=== PATIENT | female | born 1985 | race Caucasian/White ===

== ENCOUNTER 2017-08-05 07:33 | Inpatient (IN) | payer BC ==
[2017-08-05 08:56] LABS: ABS Basophils 0 10^3/ul (0-0.2); ABS Eosinophils 0.1 10^3/ul (0-0.6); ABS Lymphocytes 0.9 10^3/ul (1.0-4.8); ABS Monocytes 0.5 10^3/ul (0-0.8); ABS Nucleated RBC 0 10^3/ul; Eosinophil % 1.7 % (0-6); Hematocrit 34 % (35-47); Hemoglobin 11.7 g/dl (12.0-16.0); Lymphocyte % 14.4 % (25-47); Mean Corpuscular HGB Conc 34 g/dl (31-36); Mean Corpuscular Hemoglobin 28 pg (27-31); Mean Corpuscular Volume 81 fL (80-97); Mean Platelet Volume 10 um3 (7.4-10.4); Nucleated Red Blood Cells % 0.1; Platelet Count 254 10^3/ul (150-450); Red Blood Count 4.23 10^6/ul (4.0-5.4); Red Cell Distribution Width 14 % (10.5-15); White Blood Count 6.6 10^3/ul (3.5-10.8)
[2017-08-05] MEDS ORDERED: Oxytocin in LR* 20 UNITS/1,000 ML BAG IVPB SCH ×2 (09:00→16:00)
[2017-08-05] MEDS ORDERED: ceFOXitin(*) 1 GM VIAL ONE (14:28)
[2017-08-05] MEDS ORDERED: OXYTOCIN* 10 UNITS/ML 1 ML VIAL ONE (14:53)
[2017-08-05] MEDS ORDERED: Mivacurium Chloride* 20 MG/10 ML VIAL IV ONE (14:53)
[2017-08-05] MEDS ORDERED: Propofol* 10 MG/ML 20 ML BTL IV PUSH ONE (14:53)
[2017-08-05] MEDS ORDERED: Succinylcholine* 20 MG/ML 10 ML VIAL ONE (14:53)
[2017-08-05] MEDS ORDERED: Glycopyrrolate IV* 0.2 MG/ML 1 ML VIAL ONE (14:59)
[2017-08-05] MEDS ORDERED: Neostigmine Methylsulfate* 2 MG/2 ML SYRINGE ONE (14:59)
[2017-08-05] MEDS ORDERED: fentaNYL* 50 MCG/ML 5 ML VIAL (250 MCG VIAL) IV ONE (15:00)
[2017-08-05] MEDS ORDERED: fentaNYL* 50 MCG/ML 2 ML VIAL (100 MCG VIAL) IV ONE (15:00)
[2017-08-05] MEDS ORDERED: Naloxone* 0.4 MG/ML 1 ML VIAL IV PRN (15:10)
[2017-08-05] MEDS ORDERED: Morphine INJ* 2 MG/ML 1 ML CARPUJECT IV PRN (15:10)
[2017-08-05] MEDS ORDERED: DiMENhydriNATE IV* 50 MG/ML VIAL IV PUSH PRN (15:10)
[2017-08-05] MEDS ORDERED: Ondansetron INJ* 2 MG/ML VIAL IV PRN (15:10)
[2017-08-05] MEDS ORDERED: oxyCODONE/Acetamin 5/325 MG* TAB PO PRN (15:10)
[2017-08-05] MEDS ORDERED: PROCHLORPERAZINE INJ 5 MG/ML 2 ML VIAL IV PRN (15:10)
[2017-08-05] MEDS ORDERED: Ketorolac INJ* 30 MG/ML 1 ML VIAL IV PRN (15:10)
[2017-08-05] MEDS ORDERED: fentaNYL* 50 MCG/ML 2 ML VIAL (100 MCG VIAL) ONE (15:13)
[2017-08-05] MEDS ORDERED: Ketorolac INJ* 30 MG/ML 1 ML VIAL ONE (15:13)
[2017-08-05] MEDS ORDERED: Dibucaine 1% 28.35 GM TUBE PR PRN (15:17)
[2017-08-05] MEDS ORDERED: Acetaminophen TAB* 325 MG PO PRN (15:17)
[2017-08-05] MEDS ORDERED: Witch Hazel PAD* JAR TOPICAL PRN (15:17)
[2017-08-05] MEDS ORDERED: Glycerin ADULT SUPP PR PRN (15:17)
[2017-08-05] MEDS ORDERED: Zolpidem TAB* 5 MG PO PRN (15:17)
[2017-08-05] MEDS: fentaNYL* 50 MCG/ML 2 ML VIAL (100 MCG VIAL) IV PRN ×2 (15:23→15:43)
[2017-08-05] MEDS ORDERED: Midazolam* 1 MG/ML 2 ML VIAL (2 MG) IV ONE (16:00)
[2017-08-05] MEDS: Simethicone TAB* 80 MG TAB.CHEW PO SCH ×2 (20:10)
[2017-08-05] MEDS: Docusate CAP* 100 MG PO SCH (20:10)
[2017-08-05] MEDS: oxyCODONE/Acetamin 5/325 MG* TAB PO PRN (20:10)
[2017-08-05] MEDS ORDERED: ceFOXitin 2 GM IVPREMIX* 2 GM/50 ML BAG IVPB ONE (21:00)
[2017-08-05] MEDS: Ibuprofen TAB* 600 MG PO PRN (23:16)
[2017-08-06] MEDS: oxyCODONE/Acetamin 5/325 MG* TAB PO PRN ×6 (00:11→22:20)
[2017-08-06] MEDS: Ibuprofen TAB* 600 MG PO PRN ×3 (06:37→17:57)
[2017-08-06 08:11] LABS: ABS Basophils 0.1 10^3/ul (0-0.2); ABS Eosinophils 0.1 10^3/ul (0-0.6); ABS Lymphocytes 0.7 10^3/ul (1.0-4.8); ABS Neutrophils 9.7 10^3/ul (1.5-7.7); ABS Nucleated RBC 0 10^3/ul; Eosinophil % 0.7 % (0-6); Hematocrit 31 % (35-47); Hemoglobin 10.5 g/dl (12.0-16.0); Lymphocyte % 5.8 % (25-47); Mean Corpuscular HGB Conc 34 g/dl (31-36); Mean Corpuscular Hemoglobin 27 pg (27-31); Mean Corpuscular Volume 81 fL (80-97); Mean Platelet Volume 9 um3 (7.4-10.4); Nucleated Red Blood Cells % 0; Platelet Count 224 10^3/ul (150-450); Red Blood Count 3.86 10^6/ul (4.0-5.4); Red Cell Distribution Width 14 % (10.5-15); White Blood Count 11.5 10^3/ul (3.5-10.8)
[2017-08-06] MEDS ORDERED: Ferrous Gluconate TAB* 324 MG TAB PO SCH (09:00)
[2017-08-06] MEDS: Docusate CAP* 100 MG PO SCH ×3 (10:02→22:20)
[2017-08-06] MEDS: Simethicone TAB* 80 MG TAB.CHEW PO SCH ×4 (10:02→22:20)
[2017-08-06] MEDS: FLUoxetine CAP* 10 MG PO SCH (13:07)
[2017-08-06] MEDS: Hydrocortisone 1% CREAM* 30 GM TUBE TOPICAL SCH (18:48)
[2017-08-07] MEDS: Ibuprofen TAB* 600 MG PO PRN ×4 (00:36→21:13)
[2017-08-07] MEDS: oxyCODONE/Acetamin 5/325 MG* TAB PO PRN ×4 (02:58→16:56)
[2017-08-07] MEDS: Simethicone TAB* 80 MG TAB.CHEW PO SCH ×3 (08:48→21:13)
[2017-08-07] MEDS: Docusate CAP* 100 MG PO SCH ×3 (08:49→21:14)
[2017-08-07] MEDS ORDERED: PROZAC 10 MG PO SCH (09:00)
[2017-08-07] MEDS: FLUoxetine CAP* 10 MG PO SCH (13:10)
[2017-08-08] MEDS: oxyCODONE/Acetamin 5/325 MG* TAB PO PRN ×3 (00:22→12:18)
[2017-08-08] MEDS: Ibuprofen TAB* 600 MG PO PRN ×2 (03:54→10:18)
[2017-08-08] MEDS: Simethicone TAB* 80 MG TAB.CHEW PO SCH ×3 (08:11→12:18)
[2017-08-08] MEDS: Hydrocortisone 1% CREAM* 30 GM TUBE TOPICAL SCH ×2 (08:11→09:55)
[2017-08-08] MEDS: Docusate CAP* 100 MG PO SCH (08:18)
[2017-08-08 08:22] VITALS: BP 125/69
[2017-08-08] MEDS: FLUoxetine CAP* 10 MG PO SCH (10:57)
--- NOTE | 2017-08-22 03:54 | OP ---
DATE OF OPERATION: 08/05/17 - ROOM #[id number] DATE OF : 81 SURGEON: Ashutosh Khan MD SHEARING SHED WORKER: Ashley Gallego MD ANESTHESIA: General anesthetic with endotracheal intubation. PRE-OPERATIVE DIAGNOSES: Intrauterine at 39 weeks with - induced hypertension, prior section, in labor. POST-OPERATIVE DIAGNOSES: Intrauterine at 39 weeks with - induced hypertension, prior section in labor along with cord prolapse in labor. OPERATIVE PROCEDURE: Emergency repeat low transverse section. ESTIMATED BLOOD LOSS: 800 cc. IV FLUIDS: She received 1600 cc of IV crystalloid fluid. URINE OUTPUT: Clear. COMPLICATIONS: There were no complications during the procedure. SPECIMEN SENT TO PATHOLOGY: Cord gas and cord blood. FINDINGS: Delivery of a viable male infant with Apgars of 6 and 9, weighing 8 pounds and 12 ounces. The placenta was grossly intact with a 3-vessel cord noted, it was sent to Pathology. The uterus, adnexa, bowel, bladder were all within normal limits. DESCRIPTION OF PROCEDURE: The patient was taken to the operating room after a cord prolapse was first noted in the labor and delivery while the patient was in labor. She was placed on the operating bed in the supine position with a leftward tilt where general anesthetic with endotracheal intubation was obtained without difficulty. She was prepped and draped in a normal sterile fashion. A Pfannenstiel skin incision was made with a knife and carried through the underlying layer of fascia. The fascia was nicked in the midline and extended laterally with curved Joy scissors. The fascia was grasped superiorly and inferiorly with Watson clamps and dissected off sharply from the rectus muscle. The peritoneum was identified after the rectus muscle was in the midline bluntly. The peritoneum was then bluntly and extended inferiorly with sharp dissection. A bladder blade was inserted into the patient's abdomen and a bladder flap was created using Metzenbaum scissors over which a bladder blade was then reinserted. A low transverse skin incision was made with a knife and extended laterally with bandage scissors. Amniotic sac was noted to be ruptured. The 's head was then grasped and delivered atraumatically. The cord was clamped and cut and the infant was handed off to awaiting laboratory supervisor. Cord bloods were obtained as well as cord gas. The placenta was then removed manually. The uterus was then exteriorized, cleared of all clot and debris using moist laparotomy sponges. The uterine incision was then closed using 0 Polysorb suture in a running locked fashion with a second imbricating layer of 0 Polysorb suture with good hemostasis noted. At this point, the uterus was then returned to the patient's abdomen. The gutters were then cleared of all clot and debris using moist laparotomy sponges. After sponges were removed, we proceeded to irrigate the patient's abdomen with normal saline. Irrigation fluid was suctioned. Hemostasis at the uterine incision was again noted. All the instruments were removed from the patient's abdomen and peritoneum was then closed using 3-0 Polysorb suture in a running fashion. The fascia was closed using 0 Polysorb suture in a running fashion and interrupted 3-0 Polysorb subcutaneous stitches were used to approximate Latoya's fascia after which the skin was closed with jayson. The patient tolerated the procedure well. Sponge, lap and needle counts were correct x2. She was then transferred to recovery room area in stable condition. [id number]/[facility] #: [id number] SAMIA
== END 2017-08-08 13:17 | disposition home or self-care (01) | DRG 540 ==
LOC: MCHOBOUT 07:33 → MCHOB 08:20
PROVIDERS: ADMIT Obstetrics & Gynecology; ATTEND Obstetrics & Gynecology
PROC: 10D00Z1 Extraction of Products of Conception, Low, Open Approach (ICD-10-PCS; 2017-08-05)
PROC: 4A1HX4Z Monitoring of Products of Conception, Cardiac Electrical Activity, External Approach (ICD-10-PCS; 2017-08-05)
PROC: 10907ZC Drainage of Amniotic Fluid, Therapeutic from Products of Conception, Via Natural or Artificial Opening (ICD-10-PCS; principal; 2017-08-05 14:10)
DX: O13.4 Gestational [pregnancy-induced] hypertension without significant proteinuria, complicating childbirth (principal); O24.429 Gestational diabetes mellitus in childbirth, unspecified control; F32.9 Major depressive disorder, single episode, unspecified; O69.0XX0 Labor and delivery complicated by prolapse of cord, not applicable or unspecified; O34.211 Maternal care for low transverse scar from previous cesarean delivery; O99.344 Other mental disorders complicating childbirth; Z3A.39 39 weeks gestation of pregnancy; Z37.0 Single live birth
CPT/HCPCS: 36415; 85025; 86850; 86900; 86901; 88307; A9270-GY; J0330; J0694; J1885; J2250; J2590; J2704; J3010

== ENCOUNTER 2017-08-09 01:17 | Emergency (ER) | payer BC ==
[2017-08-09 06:00] LABS: ABS Basophils 0 10^3/ul (0-0.2); ABS Eosinophils 0.1 10^3/ul (0-0.6); ABS Lymphocytes 0.5 10^3/ul (1.0-4.8); ABS Monocytes 0.4 10^3/ul (0-0.8); ABS Neutrophils 6.9 10^3/ul (1.5-7.7); ABS Nucleated RBC 0 10^3/ul; Eosinophil % 1.1 % (0-6); Hematocrit 30 % (35-47); Hemoglobin 9.8 g/dl (12.0-16.0); Lymphocyte % 6.9 % (25-47); Mean Corpuscular HGB Conc 33 g/dl (31-36); Mean Corpuscular Hemoglobin 27 pg (27-31); Mean Corpuscular Volume 81 fL (80-97); Mean Platelet Volume 9 um3 (7.4-10.4); Nucleated Red Blood Cells % 0.1; Platelet Count 273 10^3/ul (150-450); Red Blood Count 3.64 10^6/ul (4.0-5.4); Red Cell Distribution Width 15 % (10.5-15); White Blood Count 7.9 10^3/ul (3.5-10.8)
[2017-08-09 06:15] LABS: EGFR Non-African American 126.5 (>60)
[2017-08-09 06:23] LABS: INR 0.91 (0.77-1.02)
[2017-08-09] MEDS: NS 0.9% 1000 ML*IV.FLUID IV ONE ×2 (06:28→07:59)
[2017-08-09 08:00] LABS: Urine Appearance Cloudy; Urine Blood 3+ (Negative); Urine Color Yellow; Urine Ketones Negative (Negative); Urine Protein Negative (Negative); Urine Specific Gravity 1.008 (1.010-1.030); Urine Urobilinogen Negative (Negative)
[2017-08-09 09:37] LABS: Urine Appearance Clear; Urine Blood 1+ (Negative); Urine Color Yellow; Urine Ketones Negative (Negative); Urine Protein Negative (Negative); Urine Specific Gravity 1.011 (1.010-1.030); Urine Urobilinogen Negative (Negative)
[2017-08-09] MEDS ORDERED: Amoxicillin/Clavulanate TAB* 875 MG PO ONE (09:45)
[2017-08-09 10:07] VITALS: BP 136/80
--- NOTE | 2017-08-09 11:09 | RAD ---
INDICATION: Fever 3 days status post COMPARISON: None TECHNIQUE: PA and lateral views of the chest were obtained. FINDINGS: The heart and mediastinum are normal in size and contour. The lungs are grossly clear. There is no evidence of large pleural effusion. Visualized bones are normal for the patient's age. There is no radiographic evidence of free air beneath the diaphragm IMPRESSION: No radiographic evidence of acute cardiopulmonary disease.
--- NOTE | 2017-08-13 21:11 | ED ---
Erick De Los Santos Tecjoon, scribed for Eitan Pate MD on 08/09/17 at 0528 . HPI Febrile Illness - HPI Summary HPI Summary: This patient is a 32 year old female presenting to [facility] accompanied by family with a chief complaint of fever since yesterday. Patient recently gave to her second child 4 days ago. Child was born through emergency due to a prolapsed umbilical cord. Patients child was full term, at 39 weeks. Patient was discharged yesterday and woke up with a high fever. The pain is rated 3/10 in severity. Symptoms aggravated by nothing. Symptoms alleviated by nothing The patient treated the pain with Percocet and ibuprofen on and off while in the hospital. Patient additionally reports a mild cough. Patient denies nausea, vomiting, dysuria, SOB. - History of Current Complaint Chief Complaint: EDFever Hx Obtained From: Patient Hx Last Menstrual Period: 08/30/13 Onset/Duration: Started Days Ago, Still Present Timing: Constant Temperature: 40 C - when she "woke up" Initial Severity: Moderate Current Severity: Mild Pain Intensity: 3 Pain Scale Used: 0-10 Numeric Aggravating Factors: Nothing Alleviating Factors: Nothing Associated Signs and Symptoms: Negative - nausea, vomiting, dysuria, SOB, Other : - mild cough - Allergy/Home Medications Allergies/Adverse Reactions: Allergies Allergy/AdvReac Type Severity Reaction Status Date / Time No Known Allergies Allergy Verified 08/09/17 03:32 PMH/Surg Hx/FS Hx/Imm Hx Previously Healthy: Yes Endocrine/Hematology History: Denies: Hx Anticoagulant Therapy, Hx Blood Disorders, Hx Diabetes, Hx Thyroid Disease Cardiovascular History: Denies: Hx Hypertension Respiratory History: Denies: Hx Asthma, Hx Chronic Obstructive Pulmonary Disease (COPD) GI History: Denies: Hx Ulcer Musculoskeletal History: Denies: Hx Scoliosis Sensory History: Reports: Hx Contacts or Glasses - GLASSES Denies: Hx Hearing Aid Opthamlomology History: Reports: Hx Contacts or Glasses - GLASSES Neurological History: Reports: Hx Headaches, Hx Migraine - 1.5 YEARS AGO Denies: Other Neuro Impairments/Disorders Psychiatric History: Reports: Hx Anxiety, Hx Depression - Surgical History Surgery Procedure, Year, and Place: left arm surgery x2 1998/1999. cyst removed from neck x2. 2006 Hx Anesthesia Reactions: No - Immunization History Date of Influenza Vaccine: 05/2017 Infectious Disease History: No Infectious Disease History: Denies: Hx Clostridium Difficile, Hx Hepatitis, Hx Human Immunodeficiency Virus (HIV), Hx of Known/Suspected MRSA, Hx Shingles, Hx Tuberculosis, History Other Infectious Disease, Traveled Outside the [place] in Last 30 Days - Family History Known Family History: Negative: Hypertension - Social History Lives: With Family Alcohol Use: Occasionally Hx Substance Use: No Substance Use Type: Reports: None Hx Tobacco Use: No Smoking Status (MU): Never Smoked Tobacco Have You Smoked in the Last Year: No Review of Systems Positive: Fever - yesterday, 104 Positive: Cough. Negative: Shortness Of Breath Negative: Vomiting, Nausea Negative: dysuria All Other Systems Reviewed And Are Negative: Yes Physical Exam - Summary Physical Exam Summary: Appearance: Well-appearing, Well-nourished Skin: Warm Eyes: Normal ENT: Normal Neck: Supple, nontender Respiratory: Clear to auscultation Cardiovascular: Normal S1, S2. No murmurs. Normal distal pulses in tibial and radial bilaterally. Abdomen: Soft, nontender Musculoskeletal: Normal, Strength/ROM Intact Neurological: Normal, A&Ox3 Psychiatric: Normal Triage Information Reviewed: Yes Vital Signs On Initial Exam: Initial Vitals Temp Pulse Resp BP Pulse Ox 99.4 F 134 18 135/77 97 08/09/17 01:23 08/09/17 01:23 08/09/17 01:23 08/09/17 01:23 08/09/17 01:23 Vital Signs Reviewed: Yes Diagnostics - Vital Signs Vital Signs Temp Pulse Resp BP Pulse Ox 08/09/17 05:00 101 125/72 97 08/09/17 04:32 103 137/78 98 08/09/17 04:00 107 131/74 98 08/09/17 03:27 108 98 08/09/17 03:26 142/86 08/09/17 01:23 99.4 F 134 18 135/77 97 - Laboratory Lab Results: Lab Results 08/09/17 08/09/17 08/09/17 Range/Units 05:47 05:47 05:47 WBC 7.9 (3.5-10.8) 10^3/ul RBC 3.64 L (4.0-5.4) 10^6/ul Hgb 9.8 L (12.0-16.0) g/dl Hct 30 L (35-47) % MCV 81 (80-97) fL MCH 27 (27-31) pg MCHC 33 (31-36) g/dl RDW 15 (10.5-15) % Plt Count 273 (150-450) 10^3/ul MPV 9 (7.4-10.4) um3 Neut % (Auto) 86.9 H (38-83) % Lymph % (Auto) 6.9 L (25-47) % Stearns % (Auto) 4.5 (1-9) % Eos % (Auto) 1.1 (0-6) % Baso % (Auto) 0.6 (0-2) % Absolute Neuts (auto) 6.9 (1.5-7.7) 10^3/ul Absolute Lymphs (auto) 0.5 L (1.0-4.8) 10^3/ul Absolute Monos (auto) 0.4 (0-0.8) 10^3/ul Absolute Eos (auto) 0.1 (0-0.6) 10^3/ul Absolute Basos (auto) 0 (0-0.2) 10^3/ul Absolute Nucleated RBC 0 10^3/ul Nucleated RBC % 0.1 INR (Anticoag Therapy) 0.91 (0.77-1.02) APTT 30.1 (26.0-36.3) seconds Sodium 136 (133-145) mmol/L Potassium 3.8 (3.5-5.0) mmol/L Chloride 106 (101-111) mmol/L Carbon Dioxide 22 (22-32) mmol/L Anion Gap 8 (2-11) mmol/L BUN 10 (6-24) mg/dL Creatinine 0.55 (0.51-0.95) mg/dL Est GFR ( Amer) 162.7 (>60) Est GFR (Non-Af Amer) 126.5 (>60) BUN/Creatinine Ratio 18.2 (8-20) Glucose 91 (70-100) mg/dL Lactic Acid (0.5-2.0) mmol/L Calcium 8.7 (8.6-10.3) mg/dL Total Bilirubin 0.30 (0.2-1.0) mg/dL AST 41 H (13-39) U/L ALT 47 (7-52) U/L Alkaline Phosphatase 93 (34-104) U/L Troponin I 0.01 (<0.04) ng/mL Total Protein 6.2 L (6.4-8.9) g/dL Albumin 3.1 L (3.2-5.2) g/dL Globulin 3.1 (2-4) g/dL Albumin/Globulin Ratio 1.0 (1-3) Urine Color Urine Appearance Urine pH (5-9) Ur Specific [place] (1.010-1.030) Urine Protein (Negative) Urine Ketones (Negative) Urine Blood (Negative) Urine Nitrate (Negative) Urine Bilirubin (Negative) Urine Urobilinogen (Negative) Ur Leukocyte Esterase (Negative) Urine WBC (Auto) (Absent) Urine RBC (Auto) (Absent) Ur Squamous Epith Cells (Absent) Urine Bacteria (Absent) Urine Glucose (Negative) Influenza A (Rapid) (Negative) Influenza B (Rapid) (Negative) 08/09/17 08/09/17 08/09/17 Range/Units 05:47 06:51 07:30 WBC (3.5-10.8) 10^3/ul RBC (4.0-5.4) 10^6/ul Hgb (12.0-16.0) g/dl Hct (35-47) % MCV (80-97) fL MCH (27-31) pg MCHC (31-36) g/dl RDW (10.5-15) % Plt Count (150-450) 10^3/ul MPV (7.4-10.4) um3 Neut % (Auto) (38-83) % Lymph % (Auto) (25-47) % Stearns % (Auto) (1-9) % Eos % (Auto) (0-6) % Baso % (Auto) (0-2) % Absolute Neuts (auto) (1.5-7.7) 10^3/ul Absolute Lymphs (auto) (1.0-4.8) 10^3/ul Absolute Monos (auto) (0-0.8) 10^3/ul Absolute Eos (auto) (0-0.6) 10^3/ul Absolute Basos (auto) (0-0.2) 10^3/ul Absolute Nucleated RBC 10^3/ul Nucleated RBC % INR (Anticoag Therapy) (0.77-1.02) APTT (26.0-36.3) seconds Sodium (133-145) mmol/L Potassium (3.5-5.0) mmol/L Chloride (101-111) mmol/L Carbon Dioxide (22-32) mmol/L Anion Gap (2-11) mmol/L BUN (6-24) mg/dL Creatinine (0.51-0.95) mg/dL Est GFR ( Amer) (>60) Est GFR (Non-Af Amer) (>60) BUN/Creatinine Ratio (8-20) Glucose (70-100) mg/dL Lactic Acid 0.7 (0.5-2.0) mmol/L Calcium (8.6-10.3) mg/dL Total Bilirubin (0.2-1.0) mg/dL AST (13-39) U/L ALT (7-52) U/L Alkaline Phosphatase (34-104) U/L Troponin I (<0.04) ng/mL Total Protein (6.4-8.9) g/dL Albumin (3.2-5.2) g/dL Globulin (2-4) g/dL Albumin/Globulin Ratio (1-3) Urine Color Yellow Urine Appearance Cloudy Urine pH 6.0 (5-9) Ur Specific [place] 1.008 L (1.010-1.030) Urine Protein Negative (Negative) Urine Ketones Negative (Negative) Urine Blood 3+ H (Negative) Urine Nitrate Negative (Negative) Urine Bilirubin Negative (Negative) Urine Urobilinogen Negative (Negative) Ur Leukocyte Esterase 3+ H (Negative) Urine WBC (Auto) 3+(>20/hpf) H (Absent) Urine RBC (Auto) 3+(>10/hpf) H (Absent) Ur Squamous Epith Cells Present H (Absent) Urine Bacteria 1+ H (Absent) Urine Glucose Negative (Negative) Influenza A (Rapid) Negative (Negative) Influenza B (Rapid) Negative (Negative) 08/09/17 Range/Units 09:03 WBC (3.5-10.8) 10^3/ul RBC (4.0-5.4) 10^6/ul Hgb (12.0-16.0) g/dl Hct (35-47) % MCV (80-97) fL MCH (27-31) pg MCHC (31-36) g/dl RDW (10.5-15) % Plt Count (150-450) 10^3/ul MPV (7.4-10.4) um3 Neut % (Auto) (38-83) % Lymph % (Auto) (25-47) % Stearns % (Auto) (1-9) % Eos % (Auto) (0-6) % Baso % (Auto) (0-2) % Absolute Neuts (auto) (1.5-7.7) 10^3/ul Absolute Lymphs (auto) (1.0-4.8) 10^3/ul Absolute Monos (auto) (0-0.8) 10^3/ul Absolute Eos (auto) (0-0.6) 10^3/ul Absolute Basos (auto) (0-0.2) 10^3/ul Absolute Nucleated RBC 10^3/ul Nucleated RBC % INR (Anticoag Therapy) (0.77-1.02) APTT (26.0-36.3) seconds Sodium (133-145) mmol/L Potassium (3.5-5.0) mmol/L Chloride (101-111) mmol/L Carbon Dioxide (22-32) mmol/L Anion Gap (2-11) mmol/L BUN (6-24) mg/dL Creatinine (0.51-0.95) mg/dL Est GFR ( Amer) (>60) Est GFR (Non-Af Amer) (>60) BUN/Creatinine Ratio (8-20) Glucose (70-100) mg/dL Lactic Acid (0.5-2.0) mmol/L Calcium (8.6-10.3) mg/dL Total Bilirubin (0.2-1.0) mg/dL AST (13-39) U/L ALT (7-52) U/L Alkaline Phosphatase (34-104) U/L Troponin I (<0.04) ng/mL Total Protein (6.4-8.9) g/dL Albumin (3.2-5.2) g/dL Globulin (2-4) g/dL Albumin/Globulin Ratio (1-3) Urine Color Yellow Urine Appearance Clear Urine pH 6.0 (5-9) Ur Specific [place] 1.011 (1.010-1.030) Urine Protein Negative (Negative) Urine Ketones Negative (Negative) Urine Blood 1+ H (Negative) Urine Nitrate Negative (Negative) Urine Bilirubin Negative (Negative) Urine Urobilinogen Negative (Negative) Ur Leukocyte Esterase Negative (Negative) Urine WBC (Auto) Trace(0-5/hpf) (Absent) Urine RBC (Auto) Trace(0-2/hpf) (Absent) Ur Squamous Epith Cells Present H (Absent) Urine Bacteria Absent (Absent) Urine Glucose Negative (Negative) Influenza A (Rapid) (Negative) Influenza B (Rapid) (Negative) Result Diagrams: 08/09/17 05:47 08/09/17 05:47 Lab Statement: Any lab studies that have been ordered have been reviewed, and results considered in the medical decision making process. Course/Dx - Course Assessment/Plan: I spoke with Dr. Herring who spoke with pt's surgeon, pt in no acute distress and well appearing. vitals stable, abx started here in ED and instructed to return for any repeat episodes of fever. pt agrees to and understands dc instructions.tolerating po. - Diagnoses Provider Diagnoses: fever - Provider Notifications Discussed Care Of Patient With: Gillian Herring Time Discussed With Above Provider: 09:00 Discharge - Discharge Plan Condition: Stable Disposition: HOME Prescriptions: Amoxicillin/Clavulanate TAB* [Augmentin TAB 875*] 875 mg PO BID #20 tab Patient Education Materials: Fever in Adults (ED) Referrals: Ashutosh Khan MD [Medical Doctor] - Gillian Herring MD [Medical Doctor] - Sachin Vu NP [Primary Care Provider] - Additional Instructions: PLEASE COMPLETE WHOLE COURSE OF MEDICATIONS PLEASE MAKE AN APPOINTMENT FIRST THING IN THE MORNING TO BE SEEN BY YOUR OB DOCTOR WITHIN 2-5 DAYS PLEASE RETURN IMMEDIATELY TO THE ER IF YOU HAVE ANY WORSENING OR CONCERNING SYMPTOMS PLEASE MAKE AN APPOINTMENT TO BE SEEN BY YOUR PRIMARY CARE DOCTOR WITHIN 1 WEEK The documentation as recorded by the Erick chan Tecjoon accurately reflects the service I personally performed and the decisions made by me, Eitan Pate MD.
== END 2017-08-09 10:07 | disposition home or self-care (01) ==
LOC: ED 01:17
DX: O86.4 Pyrexia of unknown origin following delivery (principal)
CPT/HCPCS: 36415; 71046; 80053; 81003; 81015; 83605; 84484; 85025; 85610; 85730; 87040; 87086; 87502; 96360; 99283; A9270-GY

== ENCOUNTER 2019-07-20 18:54 | Emergency (ER) | payer BC ==
--- NOTE | 2019-07-20 19:18 | ED ---
HPI Chest Pain - HPI Summary HPI Summary: This pt is a 34 y/o female presenting to [facility] via EMS c/o left sided chest pain since 1700 today. Pt reports she was doing house work today at home when she suddenly felt dizzy and sat down. She notes she then began to have chest pain. Pt states she ate some chocolate because she had not eaten since breakfast. She reports initially felt a little better but then her chest pain began worsening. At onset she rates her chest pain 9/10 in severity and describes it as a sharp pain. Additionally pt felt left arm and left leg numbness and tingling. Denies associated symptoms of fever, SOB, nausea, vomiting. EMS administered nitroglycerin x2 and 324 mg aspirin with moderate relief. Currently pt rates her chest pain 5/10 in severity. Pt reports she has had this pain in the past, last summer, but it lasted 1-2 weeks with gradual onset for which she went to the hospital and was diagnosed with GERD. PMHx: migraines, anxiety, depression, GERD. Pt is a former smoker, quit 15 years ago. She admits to occasional alcohol and marijuana use. FHx: uncle with fatal MD at age 41 and father with fatal MD at age 56. - History of Current Complaint Time Seen by Provider: 07/20/19 19:00 Hx Obtained From: Patient Hx Last Menstrual Period: 08/30/13 Onset/Duration: Started Hours Ago, Still Present Timing: Lasting Hours Initial Severity: Severe Current Severity: Moderate Pain Intensity: 5 Pain Scale Used: 0-10 Numeric Chest Pain Location: Left Anterior Chest Pain Radiates: No Character: Sharp/Stabbing - sharp Aggravating Factor(s): Nothing Alleviating Factor(s): Nothing Associated Signs and Symptoms: Positive: Chest Pain, Numbness, Tingling. Negative: Shortness of Breath, Fever, Chills, Nausea, Vomiting - Allergy/Home Medications Allergies/Adverse Reactions: Allergies Allergy/AdvReac Type Severity Reaction Status Date / Time No Known Allergies Allergy Verified 07/20/19 19:01 Home Medications: Home Medications Bupropion XL* [Wellbutrin XL *] 150 mg PO QPM 07/20/19 [History Confirmed ] Bupropion XL* [Wellbutrin XL *] 300 mg PO QAM 07/20/19 [History Confirmed ] Fluoxetine (Nf) Cap [Fluoxetine HCl] 40 mg PO DAILY 07/20/19 [History Confirmed 07/20/19] Propranolol HCl [Propranolol HCl ER] 80 mg PO DAILY 07/20/19 [History Confirmed 07/20/19] PMH/Surg Hx/FS Hx/Imm Hx Endocrine/Hematology History: Denies: Hx Anticoagulant Therapy, Hx Blood Disorders, Hx Diabetes, Hx Thyroid Disease Cardiovascular History: Denies: Hx Hypertension Respiratory History: Denies: Hx Asthma, Hx Chronic Obstructive Pulmonary Disease (COPD) GI History: Denies: Hx Ulcer Musculoskeletal History: Denies: Hx Scoliosis Sensory History: Reports: Hx Contacts or Glasses - GLASSES Denies: Hx Hearing Aid Opthamlomology History: Reports: Hx Contacts or Glasses - GLASSES Neurological History: Reports: Hx Headaches, Hx Migraine - 1.5 YEARS AGO Denies: Other Neuro Impairments/Disorders Psychiatric History: Reports: Hx Anxiety, Hx Depression - Surgical History Surgical History: Yes Surgery Procedure, Year, and Place: left arm surgery x2 1998/1999. cyst removed from neck x2. 2006. exploratory surgery to remove IUD Hx Anesthesia Reactions: No - Immunization History Date of Influenza Vaccine: 2019 Immunizations Up to Date: Yes Infectious Disease History: No Infectious Disease History: Denies: Hx Clostridium Difficile, Hx Hepatitis, Hx Human Immunodeficiency Virus (HIV), Hx of Known/Suspected MRSA, Hx Shingles, Hx Tuberculosis, History Other Infectious Disease, Traveled Outside the [place] in Last 30 Days - Family History Known Family History: Negative: Hypertension - Social History Alcohol Use: Occasionally Hx Substance Use: No Substance Use Type: Reports: Marijuana Substance Use Comment - Amount & Last Used: last smoked today Hx Tobacco Use: No Smoking Status (MU): Former Smoker Have You Smoked in the Last Year: No Review of Systems Negative: Fever Positive: Chest Pain Negative: Shortness Of Breath Negative: Vomiting, Nausea Positive: Paresthesia, Numbness All Other Systems Reviewed And Are Negative: Yes Physical Exam - Summary Physical Exam Summary: VITAL SIGNS: Reviewed. GENERAL: Patient is a well-developed and nourished female who is lying comfortable in the stretcher. Patient is not in any acute respiratory distress. HEAD AND FACE: No signs of trauma. No ecchymosis, hematomas or skull depressions. No sinus tenderness. EYES: PERRLA, EOMI x 2, No injected conjunctiva, no nystagmus. EARS: Hearing grossly intact. Ear canals and tympanic membranes are within normal limits. MOUTH: Oropharynx within normal limits. NECK: Supple, trachea is midline, no adenopathy, no JVD, no carotid bruit, no c- spine tenderness, neck with full ROM. CHEST: Symmetric, reproducible chest pain. LUNGS: Clear to auscultation bilaterally. No wheezing or crackles. CVS: Regular rate and rhythm, S1 and S2 present, no murmurs or gallops appreciated. ABDOMEN: Soft, non-tender. No signs of distention. No rebound, no guarding, and no masses palpated. Bowel sounds are normal. EXTREMITIES: FROM in all major joints, no edema, no cyanosis or clubbing. NEURO: Alert and oriented x 3. No acute neurological deficits. Speech is normal and follows commands. SKIN: Dry and warm Triage Information Reviewed: Yes Vital Signs On Initial Exam: Initial Vitals Temp Pulse Resp BP Pulse Ox 98 F 96 20 156/90 99 07/20/19 18:57 07/20/19 18:57 07/20/19 18:57 07/20/19 18:57 07/20/19 18:57 Vital Signs Reviewed: Yes Procedures - Sedation Patient Received Moderate/Deep Sedation with Procedure: No Diagnostics - Vital Signs Vital Signs Temp Pulse Resp BP Pulse Ox 07/20/19 19:03 89 19 97 07/20/19 18:57 98 F 91 20 156/90 99 - Laboratory Result Diagrams: 07/20/19 19:54 07/20/19 19:54 Lab Statement: Any lab studies that have been ordered have been reviewed, and results considered in the medical decision making process. - Radiology chest XR Radiology Interpretation Completed By: ED Physician Summary of Radiographic Findings: No acute process. - EKG 19:17 Cardiac Rate: NL - at 78 bpm EKG Rhythm: Sinus Rhythm Summary of EKG Findings: EKG at 1917 shows sinus rhythm at a rate of [address] elevations. EKG was reviewed and interpreted by ED physician. Re-Evaluation - Re-Evaluation First Eval Re-Evaluation Time: 20:58 Comment: Reviewed results with pt. She will be discharged home. Chest Pain Course/Dx - Course Assessment/Plan: This pt is a 34 y/o female presenting to [facility] via EMS c/o left sided chest pain since 1700 today. Pt reports she was doing house work today at home when she suddenly felt dizzy and sat down. She notes she then began to have chest pain. Pt states she ate some chocolate because she had not eaten since breakfast. She reports initially felt a little better but then her chest pain began worsening. At onset she rates her chest pain 9/10 in severity and describes it as a sharp pain. Additionally pt felt left arm and left leg numbness and tingling. Denies associated symptoms of fever, SOB, nausea, vomiting. EMS administered nitroglycerin x2 and 324 mg aspirin with moderate relief. Currently pt rates her chest pain 5/10 in severity. Pt reports she has had this pain in the past, last summer, but it lasted 1-2 weeks with gradual onset for which she went to the hospital and was diagnosed with GERD. PMHx: migraines, anxiety, depression, GERD. Pt is a former smoker, quit 15 years ago. She admits to occasional alcohol and marijuana use. FHx: uncle with fatal MD at age 41 and father with fatal MD at age 56. Blood work without any significant abnormality. Troponin is 0.00. EKG shows a normal sinus rhythm without any ST elevations. Chest x-ray shows no acute pathology. In the ED course the patient continues to be asymptomatic. Patient reports that all symptoms have resolved. Patient's HEART score is: 0 therefore, low suspicion for CAD. Patient is not hypoxic or tachycardic. Wells criteria 0, therefore no suspicion for PE. Patient has no abdominal bruit thus no suspicion for AAA. Patients pain does not radiate to the back and pain has resolved thus low suspicion for aortic dissection. I discussed all the findings and test results with the patient. Patient was instructed to return to the emergency room immediately if any of the symptoms return or worsen. Patient understands and agrees. Plan of care was discussed with the patient and patient understands and agrees. All questions were answered at patient satisfaction. There were no further complaints or concerns. Physical exam before discharge: CVS: S1 and S2 present. No murmurs appreciated. Abdominal exam before discharge: Soft, non- tender. No signs of distention. No rebound no guarding, and no masses palpated. Bowel sounds are normal. Patient is alert and oriented x 3. Patient is hemodynamically stable. - Chest Pain Differential Diagnosis/HQI/PQRI: Acute MD, ACS, Angina, CHF, Chest Wall, GI Disease, Lower Respiratory Infection, Pulmonary Edema - Diagnoses Provider Diagnoses: Atypical chest pain Discharge ED - Sign-Out/Discharge Documenting (check all that apply): Patient Departure - Discharge home - Discharge Plan Condition: Stable Disposition: HOME Patient Education Materials: Chest Pain (ED) Referrals: Sachin Vu DIRECTOR [employer] [Primary Care Provider] - Additional Instructions: FOLLOW UP WITH YOUR PRIMARY CARE PROVIDER IN 2-3 DAYS. RETURN TO THE ED FOR ANY NEW OR WORSENING SYMPTOMS. - Billing Disposition and Condition Condition: STABLE Disposition: Home - Attestation Statements Document Initiated by Scribe: Yes Documenting Scribe: Iona Flores Provider For Whom Scribe is Documenting (Include Credential): Jaiden Posada MD Scribe Attestation: Iona De Los Santos scribed for Jaiden Posada MD on 07/20/19 at 2154. Scribe Documentation Reviewed: Yes Provider Attestation: The documentation as recorded by the oIna chan accurately reflects the service I personally performed and the decisions made by Jaiden galvez MD Status of Scribe Document: Viewed
--- OUTSIDE RECORDS SUMMARY | 2019-07-20 19:32 | XMS REPORT | Continuity of Care Document ---
:1985 External Reference #:[id number] Author Name Tammie Hanley O.D. Address [address] [place] [address] Care Team Providers Name Role Phone Sachin Vu - Nurse Practitioner Care Team Information Shoe Polisher Caleb Calhoun DO - Neurology Care Team Information Shoe Polisher Problems Active Problems Provider Date Depressive disorder Onset: Anxiety Tammie Hanley O.D. Onset: 06/11/2019 Migraine Tammie Hanley O.D. Onset: 06/11/2019 Social History Type Date Description Comments Sex Unknown ETOH Use Rarely consumes alcohol Tobacco Use Start: Unknown Patient has never smoked Recreational Drug Use Denies Drug Use Smoking Status Reviewed: 06/11/19 Patient has never smoked Allergies, Adverse Reactions, Alerts Description No Known Drug Allergies Medications Active Medications SIG Qnty Indications Ordering Provider Date Bupropion Hydrochloride ER (XL) Sachin Vu 150mg Tablets ER 24HR Fluoxetine HCL Sachin Vu 40mg Capsules Propranolol HCL ER Sachin Vu [employer] 80mg Caps ER 24HR Sumatriptan Succinate Sachin Vu [employer] 50mg Tablets Immunizations Description No Information Available Vital Signs Description No Information Available Results Description No Information Available Procedures Description No Information Available Medical Devices Description No Information Available Encounters Description No Information Available Assessments Date Code Description Provider 06/11/2019 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 Plan of Treatment 06/11/2019 - Tammie Hanley O.D.H35.413 Lattice degeneration of retina, bilateralFollow up:1 Year Follow Up You can expect to have your eyes dilated at your next visit. If Dr. Hanley orders any additional testing, it may require extra time. We recommend that you bring sunglasses, as dilation drops often make you light sensitive until they wear off. We always recommend you bring someone to drive you home if you are uncomfortable driving with your eyes dilated. If you have any questions before your next visit, feel free to call our office at . Functional Status Description No Information Available Mental Status Description No Information Available Referrals Description No Information Available
[2019-07-20 20:01] LABS: ABS Basophils 0.1 10^3/ul (0-0.2); ABS Eosinophils 0.1 10^3/ul (0-0.6); ABS Lymphocytes 0.8 10^3/ul (1.0-4.8); ABS Monocytes 0.6 10^3/ul (0-0.8); ABS Neutrophils 4.4 10^3/ul (1.5-7.7); Eosinophil % 2.3 %; Hematocrit 35 % (35-47); Hemoglobin 11.9 g/dL (12.0-16.0); Lymphocyte % 13.1 %; Mean Corpuscular HGB Conc 34 g/dL (31-36); Mean Corpuscular Hemoglobin 27 pg (27-31); Mean Corpuscular Volume 80 fL (80-97); Mean Platelet Volume 9.1 fL (7.4-10.4); Platelet Count 288 10^3/uL (150-450); Red Blood Count 4.36 10^6 /uL (3.70-4.87); Red Cell Distribution Width 16 % (10-15)
[2019-07-20 20:20] LABS: Albumin 4.2 g/dL (3.2-5.2); Albumin/Globulin Ratio 1.6 (1-3); BUN/Creatinine Ratio 18.4 (8-20); Calcium 8.9 mg/dL (8.6-10.3); EGFR African American 89.1 (>60); EGFR Non-African American 73.7 (>60); Globulin 2.6 g/dL (2-4); Potassium 4.2 mmol/L (3.5-5.0); Total Bilirubin 0.2 mg/dL (0.2-1.0); Total Protein 6.8 g/dL (6.4-8.9)
[2019-07-20 20:25] LABS: CKMB ng/mL 0.8 ng/mL (0.6-6.3)
[2019-07-20 20:41] LABS: TSH (Thyroid Stimulating Horm) 1.06 mcIU/mL (0.34-5.60)
[2019-07-20 20:51] LABS: Urine Appearance Clear; Urine Bilirubin Negative (Negative); Urine Blood 1+ (Negative); Urine Color Yellow; Urine Glucose Negative (Negative); Urine Ketones Negative (Negative); Urine Nitrite Negative (Negative); Urine Protein Negative (Negative); Urine Specific Gravity 1.017 (1.010-1.030); Urine Urobilinogen Negative (Negative)
[2019-07-20 20:53] LABS: Urine Bacteria Absent (Absent); Urine Red Blood Cell Absent (Absent); Urine Squamous Epithelial Cell Present (Absent); Urine White Blood Cell Absent (Absent)
[2019-07-20 21:47] VITALS: BP 155/84
== END 2019-07-20 21:44 | disposition home or self-care (01) ==
LOC: ED 18:54
DX: R07.89 Other chest pain (principal); R20.0 Anesthesia of skin; R20.2 Paresthesia of skin; F41.9 Anxiety disorder, unspecified; F32.9 Major depressive disorder, single episode, unspecified; Z87.891 Personal history of nicotine dependence
CPT/HCPCS: 36415; 71045; 80053; 81003; 81015; 82550; 82553; 83880; 84443; 84484; 85025; 93005; 99283